=== PATIENT | male | born 1980 | race Hispanic/Latino ===

== ENCOUNTER 2018-05-02 07:50 | Day surgery (SDC) | payer OTHER ==
[~2018-05-02 07:50] MED LIST: PROPOFOL 200 MG/20 ML VIAL As Ordered
[2018-05-02] MEDS ORDERED: NS 1,000 ML IV (08:45)
== END 2018-05-02 10:58 | disposition home or self-care (01) ==
LOC: M OPP 10:58
DX: K64.8 Other hemorrhoids (principal); K63.5 Polyp of colon; D12.3 Benign neoplasm of transverse colon; K57.30 Diverticulosis of large intestine without perforation or abscess without bleeding; F41.9 Anxiety disorder, unspecified; G47.30 Sleep apnea, unspecified; M54.9 Dorsalgia, unspecified; F17.210 Nicotine dependence, cigarettes, uncomplicated; Z79.899 Other long term (current) drug therapy; Z80.0 Family history of malignant neoplasm of digestive organs; Z80.41 Family history of malignant neoplasm of ovary; Z80.43 Family history of malignant neoplasm of testis; Z80.3 Family history of malignant neoplasm of breast
CPT/HCPCS: 45385